=== PATIENT | female | born 1995 | race Caucasian/White ===

== ENCOUNTER 2017-01-30 10:47 | Emergency (ER) | payer SELFPAY ==
[~2017-01-30] VITALS: Ht 165.1 cm; Wt 54.4 kg
[2017-01-30] MEDS ORDERED: MORPHINE SULFATE 4 MG/ML DISP.SYRIN. IV ONE (11:15)
[2017-01-30] MEDS ORDERED: ONDANSETRON PF 4 MG/2 ML VIAL. IV ONE (11:15)
[2017-01-30] MEDS ORDERED: diphenhydrAMINE 50 MG/ML VIAL IVP ONE (11:15)
--- NOTE | 2017-01-30 11:23 | PHYS DOC ---
Past Medical History Past Medical History: Endometriosis, Other Additional Past Medical Histor: OVARIAN CYSTS Past Surgical History: No Surgical History Additional Information: 3 TO 4 CIGARETTES A DAY Alcohol Use: Occasionally Drug Use: Marijuana Adult General Chief Complaint Chief Complaint: ABDOMINAL PAIN HPI HPI Patient is a 21 year old female presents to the ED complaining of lower abdominal pain x 1 day. Describes the pain as cramping. Rates the pain as 7/10. History of dysmenorrhea and ovarian cysts. States day 1 of her menstrual cycle always starts out like this. Denies fever, chest pain, shortness of breath, headache, weakness, changes in stool, back pain, or dysuria. Review of Systems Review of Systems Constitutional: Denies fever or chills [] Eyes: Denies change in visual acuity, redness, or eye pain [] HENT: Denies nasal congestion or sore throat [] Respiratory: Denies cough or shortness of breath [] Cardiovascular: No additional information not addressed in HPI [] GI: Complains of abdominal pain. Denies nausea, vomiting, bloody stools or diarrhea [] : Denies dysuria or hematuria [] Musculoskeletal: Denies back pain or joint pain [] Integument: Denies rash or skin lesions [] Neurologic: Denies headache, focal weakness or sensory changes [] Endocrine: Denies polyuria or polydipsia [] All other systems were reviewed and found to be within normal limits, except as documented in this note. Current Medications Current Medications Current Medications Medications (Trade) Dose Ordered Sig/Sumi Start Time Stop Time Status Last Admin Dose Admin Diphenhydramine HCl (Benadryl) 25 mg 1X ONCE 01/30/17 11:15 01/30/17 11:16 DC 01/30/17 11:18 25 MG Morphine Sulfate 4 mg 1X ONCE 01/30/17 11:15 01/30/17 11:16 DC 01/30/17 11:18 4 MG Ondansetron HCl (Zofran) 4 mg 1X ONCE 01/30/17 11:15 01/30/17 11:16 DC 01/30/17 11:18 4 MG Allergies Allergies Allergies Coded Allergies Type Severity Reaction Last Updated Verified No Known Drug Allergies 01/30/17 No Physical Exam Physical Exam Constitutional: Well developed, well nourished, no acute distress, non-toxic appearance. [] HENT: Normocephalic, atraumatic, bilateral external ears normal, oropharynx moist, no oral exudates, nose normal. [] Eyes: PERRLA, EOMI, conjunctiva normal, no discharge. [] Neck: Normal range of motion, no tenderness, supple, no stridor. [] Cardiovascular:Heart rate regular rhythm, no murmur [] Lungs & Thorax: Bilateral breath sounds clear to auscultation [] Abdomen: Bowel sounds normal, soft, MILD SUPRAPUBIC TENDERNESS. NO MCBURNEYS OR MURPHYS POINT TENDERNESS., no masses, no pulsatile masses. [] Skin: Warm, dry, no erythema, no rash. [] Back: No tenderness, no CVA tenderness. [] Extremities: No tenderness, no cyanosis, no clubbing, ROM intact, no edema. [] Neurologic: Alert and oriented X 3, normal motor function, normal sensory function, no focal deficits noted. [] Psychologic: Affect normal, judgement normal, mood normal. [] Current Patient Data Vital Signs Vital Signs Date Time Temp Pulse Resp B/P (MAP) Pulse Ox O2 Delivery O2 Flow Rate FiO2 01/30/17 14:04 81 16 98/55 (69) 99 Room Air 01/30/17 10:55 97.8 97.8 Lab Values Laboratory Tests Test 01/30/17 11:13 01/30/17 12:47 01/30/17 13:06 White Blood Count 15.5 x10^3/uL (4.0-11.0) H Red Blood Count 5.25 x10^6/uL (3.50-5.40) Hemoglobin 14.6 g/dL (12.0-15.5) Hematocrit 44.9 % (36.0-47.0) Mean Corpuscular Volume 86 fL (79-100) Mean Corpuscular Hemoglobin 28 pg (25-35) Mean Corpuscular Hemoglobin Concent 33 g/dL (31-37) Red Cell Distribution Width 13.0 % (11.5-14.5) Platelet Count 318 x10^3/uL (140-400) Sodium Level 140 mmol/L (136-145) Potassium Level 3.4 mmol/L (3.5-5.1) L Chloride Level 103 mmol/L (98-107) Carbon Dioxide Level 26 mmol/L (21-32) Anion Gap 11 (6-14) Blood Urea Nitrogen 8 mg/dL (7-20) Creatinine 0.7 mg/dL (0.6-1.0) Estimated GFR (Cockcroft-Gault) 103.7 BUN/Creatinine Ratio 11 (6-20) Glucose Level 117 mg/dL (70-99) H Calcium Level 9.2 mg/dL (8.5-10.1) Total Bilirubin 0.9 mg/dL (0.2-1.0) Aspartate Amino Transferase (AST) 14 U/L (15-37) L Alanine Aminotransferase (ALT) 17 U/L (14-59) Alkaline Phosphatase 56 U/L (46-116) Total Protein 8.2 g/dL (6.4-8.2) Albumin 4.0 g/dL (3.4-5.0) Albumin/Globulin Ratio 1.0 (1.0-1.7) Urine Collection Type Unknown Urine Color Tereza Urine Clarity Cloudy Urine pH 8.0 Urine Specific Selmer 1.025 Urine Protein 100 mg/dL (NEG-TRACE) Urine Glucose (UA) Negative mg/dL (NEG) Urine Ketones (Stick) 15 mg/dL (NEG) Urine Blood Large (NEG) Urine Nitrite Negative (NEG) Urine Bilirubin Negative (NEG) Urine Urobilinogen Dipstick 1.0 mg/dL (0.2 mg/dL) Urine Leukocyte Esterase Small (NEG) Urine RBC 20-40 /HPF (0-2) Urine WBC 1-4 /HPF (0-4) Urine Squamous Epithelial Cells Few /LPF Urine Bacteria Few /HPF (0-FEW) POC Urine HCG, Qualitative Hcg negative (Negative) Laboratory Tests 01/30/17 11:13 Laboratory Tests 01/30/17 11:13 EKG EKG [] Radiology/Procedures Radiology/Procedures PROCEDURE: PELVIS W/TV EXAM: Pelvic sonogram. HISTORY: Pelvic pain and ovarian cysts. TECHNIQUE: Transabdominal and transvaginal sonographic imaging of the pelvis was performed. COMPARISON: None. FINDINGS: The uterus is retroverted and measures 7.1 x 3.3 x 4.0 cm. The endometrial stripe measures 10 mm in thickness. The right ovary measures 3.2 x 1.8 x 2.4 cm. The left ovary measures 3.6 x 1.6 x 3.1 cm. There is normal blood flow within both ovaries. There are small ovarian antral follicles. There is moderate pelvic free fluid. IMPRESSION: 1. Moderate pelvic free fluid. 2. Retroverted uterus. 3. Otherwise, unremarkable pelvic sonogram.[] Course & Med Decision Making Course & Med Decision Making Pertinent Labs and Imaging studies reviewed. (See chart for details) []Discussed imaging findings with patient. Patient's pain improved. States she is feeling much better. On reexamination, abdomen is soft nontender nondistended. No peritoneal signs. Tolerating by mouth. Patient states same symptoms occur every month. Discussed follow-up with [facility] early next week. Provided contact information/education. Discussed reasons to return to the ED. Patient understands and agrees with plan. Dragon Disclaimer Dragon Disclaimer This electronic medical record was generated, in whole or in part, using a voice recognition dictation system. Departure Departure Impression: Primary Impression: Dysmenorrhea Disposition: HOME, SELF-CARE Condition: IMPROVED Referrals: NON,STAFF (PCP) OLMAN POTTER MD Patient Instructions: Dysmenorrhea Scripts Hydrocodone/Apap 5-325 (NORCO 5-325 TABLET) 1 Each Tablet 1 TAB PO TID, #8 TAB Prov: ADALGISA DUPONT 01/30/17 Ondansetron (ZOFRAN ODT) 4 Mg Tab.rapdis 1 TAB SL Q8HRS, #15 TAB Prov: ADALGISA DUPONT 01/30/17 ADALGISA DUPONT Jan 30, 2017 11:23
[2017-01-30 11:28] LABS: HEMATOCRIT 44.9 % (36.0-47.0); HEMOGLOBIN 14.6 g/dL (12.0-15.5); RED BLOOD COUNT 5.25 x10^6/uL (3.50-5.40); WHITE BLOOD COUNT 15.5 x10^3/uL (4.0-11.0)
[2017-01-30 11:44] LABS: CALCIUM 9.2 mg/dL (8.5-10.1); CREATININE 0.7 mg/dL (0.6-1.0); GFR 103.7; POTASSIUM 3.4 mmol/L (3.5-5.1)
[2017-01-30 11:49] LABS: TOTAL BILIRUBIN 0.9 mg/dL (0.2-1.0); TOTAL PROTEIN 8.2 g/dL (6.4-8.2)
--- NOTE | 2017-01-30 12:10 | RAD ---
EXAM: Pelvic sonogram. HISTORY: Pelvic pain and ovarian cysts. TECHNIQUE: Transabdominal and transvaginal sonographic imaging of the pelvis was performed. COMPARISON: None. FINDINGS: The uterus is retroverted and measures 7.1 x 3.3 x 4.0 cm. The endometrial stripe measures 10 mm in thickness. The right ovary measures 3.2 x 1.8 x 2.4 cm. The left ovary measures 3.6 x 1.6 x 3.1 cm. There is normal blood flow within both ovaries. There are small ovarian antral follicles. There is moderate pelvic free fluid. IMPRESSION: 1. Moderate pelvic free fluid. 2. Retroverted uterus. 3. Otherwise, unremarkable pelvic sonogram.
[2017-01-30 13:18] LABS: BILIRUBIN,URINE NEGATIVE (NEG); GLUCOSE,URINE NEGATIVE (NEG); NITRITE,URINE NEGATIVE (NEG); PROTEIN,URINE 100 mg/dL (NEG-TRACE)
[2017-01-30 13:37] LABS: BACTERIA,URINE FEW /HPF (0-FEW); RBC,URINE 20-40 /HPF (0-2)
[2017-01-30 13:38] LABS: SQUAMOUS EPITHELIAL CELL,UR FEW /LPF
[2017-01-30] MEDS ORDERED: HYDR-971 PO (13:50)
[2017-01-30] MEDS ORDERED: ONDA4TAB10 SL (13:50)
[2017-01-30 14:04] VITALS: BP 98/55
== END 2017-01-30 14:09 | disposition home or self-care (01) ==
LOC: ER 10:47
DX: N94.6 Dysmenorrhea, unspecified (principal); F17.210 Nicotine dependence, cigarettes, uncomplicated
CPT/HCPCS: 36415; 76830; 76856; 80053; 81001; 81025; 85027; J1200; J2270; J2405; 96374; 96375; 99285-25